=== PATIENT | male | born 1995 | race Hispanic/Latino ===

== ENCOUNTER 2020-01-23 22:55 | Emergency (ER) | payer OTHER ==
[~2020-01-23] VITALS: Ht 167.6 cm; Wt 52.0 kg
[2020-01-23] MEDS ORDERED: GENTAMICIN0.3 % OS (23:19)
[2020-01-23 23:45] VITALS: BP 132/74
== END 2020-01-23 23:45 | disposition home or self-care (01) | DRG 125 ==
LOC: ED 22:55 → EDBD 22:55 → ED 23:20
DX: S05.02XA Injury of conjunctiva and corneal abrasion without foreign body, left eye, initial encounter (principal); X58.XXXA Exposure to other specified factors, initial encounter